=== PATIENT | male | born 1975 | race Caucasian/White ===

== ENCOUNTER → 2024-12-27 15:23 | Outpatient (REF) | payer OTHER, SELFPAY | LOC: RAD 15:23 | PROVIDERS: ATTENDING PHYSICIAN Nurse Practitioner Adult Health | DX: R91.8 Other nonspecific abnormal finding of lung field (principal) | CPT/HCPCS: 71250 ==

== ENCOUNTER → 2025-01-02 16:20 | Outpatient (REF) | payer OTHER, SELFPAY | LOC: RAD 16:20 | PROVIDERS: ATTENDING PHYSICIAN Nurse Practitioner Adult Health | DX: E05.90 Thyrotoxicosis, unspecified without thyrotoxic crisis or storm (principal); E04.1 Nontoxic single thyroid nodule | CPT/HCPCS: 76536 ==